=== PATIENT | female | born 1990 | race Caucasian/White ===

== ENCOUNTER 2016-06-12 09:10 | Inpatient (IN) | payer OTHER ==
[2016-06-12] VITALS (16 sets, daily range): BP systolic 92–142; BP diastolic 53–79
[~2016-06-12] VITALS: Ht 165.1 cm; Wt 56.0 kg
--- NOTE | ~2016-06-12 | CON ---
[place], [place] REPORT OF CONSULTATION NAME: MARY GRACE GRUBER UNIT #: [id number] ROOM: 401 DOCTOR: SUSIE CURRY MD BIRTHDATE: [birth year] DOS: 06/14/2016 REASON FOR CONSULTATION: Possible meningitis. CONSULTING PHYSICIAN: ____. HISTORY OF PRESENT ILLNESS: This is a 25-year-old woman who is a [id number] mom who had never had any similar illnesses, but does have anxiety and depression for which she does not take medicines, admitted with acute onset of left-sided neck pain and stiffness that started when she woke up from her sleep, the day before admission. It radiated to her lower back. Also, she does not recall any trauma, but she had been playing outside with her son. She recently had an outbreak of genital herpes 2 days ago. Does not have any fever or frontal headache or seizures. She has a history of hyperthyroidism, does not admit to any new medication changes recently. PAST MEDICAL HISTORY: Positive for history of anxiety, depression with nonadherence with treatment, bipolar 1 disorder, HSV infection of the genitalia, hyperthyroidism, and tobacco abuse. PAST SURGICAL HISTORY: Tonsillectomy, adenoidectomy. SOCIAL HISTORY: She smokes about a pack per day, does not drink alcohol, [id number] mom. No illicit drugs. Has 2 kids, 7 and 5 years old. FAMILY HISTORY: Father had diabetes and coronary artery disease. Mother with no health issues. ALLERGIES: SHE IS ALLERGIC TO PENICILLIN, ERYTHROMYCIN, MORPHINE. HOME MEDICATIONS: She does not take any medicines at home currently. REVIEW OF SYSTEMS: Fourteen review of systems otherwise negative unless otherwise specified in the HPI. PHYSICAL EXAMINATION: VITAL SIGNS: Showed temperature of 98.2, heart rate of 92, blood pressure 119/77, respiratory rate of 16, pulse ox of 100 on room air. GENERAL APPEARANCE: Awake, alert, oriented to time, place and person. No acute distress. HEENT: Oral cavity moist. NECK: Supple, no JVD, no lymphadenopathy, some neck stiffness with musculoskeletal pain on palpation. HEART: Regular rate and rhythm. S1, S2 normal. No murmurs, gallops or rubs. LUNGS: Clear to auscultation. Equal air entry bilaterally. ABDOMEN: Soft, nontender, nondistended. Bowel sounds heard. EXTREMITIES: Warm to touch. Pulses palpated bilaterally equal. LABORATORY DATA: Reviewed. WBC of 7.9, hemoglobin 11.2, platelets 171. BUN 4, creatinine 0.41. AST/ALT 02/23. C-reactive protein less than 0.29. CSF [place], [place] REPORT OF CONSULTATION NAME: MARY GRACE GRUBER UNIT #: [id number] ROOM: 401 DOCTOR: SUSIE CURRY MD BIRTHDATE: [birth year] analysis: WBC 2, glucose 60, protein 42.7. Blood cultures negative. CT of the head, no parenchymal abnormalities. Chest x-ray, no infiltrates. ASSESSMENT AND PLAN: Acute musculoskeletal neck pain without evidence of meningitis with normal CSF studies. I did not recommend any antibiotics or antivirals. She did have an outbreak of genital herpes, which is resolved at the moment, do not recommend any acyclovir either. We will leave management of the musculoskeletal neck pain and further workup for the same up to the primary team. Do not recommend any antibiotics. Recommendations conveyed to resident doctor, Dr. Roland Leon. I will follow as stated. Thank you for this consult. SUSIE CURRY MD CM:CONSTR:REPORT OF CONSULTATION 11 06/15/16 0425 interface
[2016-06-12 10:45] LABS: BASO % 0.4 % (0.0-1.0); EOS # 0.1 10*3/uL (0.0-0.4); EOS % 0.9 % (1.0-4.0); HEMATOCRIT 43.1 % (37.0-47.0); HEMOGLOBIN 14.7 g/dl (12.0-16.0); LYMPH # 2.1 10*3/uL (1.3-4.4); LYMPH % 21.7 % (27.0-41.0); MEAN CELL VOLUME 91.5 fl (81.0-99.0); MEAN CORPUSCULAR HGB 31.2 pg (27.0-31.0); MEAN CORPUSCULAR HGB CONC 34.1 g/dl (33.0-37.0); MEAN PLATELET VOLUME 9.9 fl (9.6-12.3); MONO # 0.4 10*3/uL (0.1-1.0); MONO % 3.7 % (3.0-9.0); NEUT % 72.9 % (47.0-73.0); PLATELET COUNT AUTOMATED 198 10*3/uL (130-400); RED BLOOD COUNT 4.71 10*6/uL (4.10-5.10); RED CELL DISTRI WIDTH 13.1 % (0-14.5); WHITE BLOOD COUNT 9.6 10*3/uL (4.8-10.8)
[2016-06-12 10:51] LABS: BILIRUBIN NEGATIVE (NEGATIVE); BLOOD TRACE-INTACT (NEGATIVE); CLARITY SL CLOUDY (CLEAR); COLOR YELLOW (YELLOW); GLUCOSE NEGATIVE (NEGATIVE); KETONE 2+ (NEGATIVE); LEUKO ESTERASE TRACE (NEGATIVE); NITRITE NEGATIVE (NEGATIVE); PROTEIN NEGATIVE (NEGATIVE); SPECIFIC GRAVITY <= 1.005 (1.005-1.030); UROBILINOGEN 0.2 E.U./dl (0.2-1.0)
[2016-06-12 10:56] LABS: PROTHROMBIN TIME 10.3 SECONDS (9.0-12.4)
[2016-06-12 11:00] LABS: URINE REFLEX COMMENT YES (NO)
[2016-06-12 11:04] LABS: ALBUMIN 4.2 gm/dl (3.1-4.5); BILIRUBIN, TOTAL 0.4 mg/dl (0.2-1.0); BUN 8 mg/dl (7-24); CARBON DIOXIDE 26 mmol/L (21-32); CHLORIDE 106 mmol/L (98-107); EST GLOM FILT AFRICAN AMERICAN > 60 ml/min; GLUCOSE 96 mg/dL (65-99); POTASSIUM 3.7 mmol/L (3.5-5.1); SGOT/AST 12 IU/L (3-35); SGPT/ALT 22 U/L (12-78); SODIUM 140 mmol/L (136-145); TOTAL PROTEIN 8.2 gm/dL (6.4-8.2)
[2016-06-12 11:07] LABS: ALKALINE PHOSPHATASE 58 U/L (45-117); C-REACTIVE PROTEIN < 0.29 MG/DL (0-0.3); TROPONIN I < 0.015 ng/ml (<0.045)
[2016-06-12 13:46] LABS: CSF RBC < 1000 /uL
[2016-06-12 13:50] LABS: CSF GLUCOSE 60 mg/dL (40-70); CSF TOTAL PROTEIN 42.7 mg/dL (15-45)
[2016-06-12 14:32] LABS: CSF LYMPHOCYTES 68 % (40-80); CSF MONOCYTES 12 % (15-45); CSF NEUTROPHILS 20 % (0-6)
[2016-06-12 14:37] LABS: CLARITY CLEAR; COLOR COLORLESS; TUBE# 2; VOLUME 3.5 mL
[2016-06-13] VITALS: BP 112/84
[2016-06-13 07:18] LABS: BASO % 0.2 % (0.0-1.0); EOS # 0.2 10*3/uL (0.0-0.4); EOS % 3.9 % (1.0-4.0); LYMPH # 2.4 10*3/uL (1.3-4.4); LYMPH % 42.2 % (27.0-41.0); MEAN CELL VOLUME 93.4 fl (81.0-99.0); MEAN CORPUSCULAR HGB CONC 33.1 g/dl (33.0-37.0); MONO # 0.3 10*3/uL (0.1-1.0); MONO % 5.5 % (3.0-9.0); NEUT # 2.7 10*3/uL (2.3-7.9); NEUT % 47.8 % (47.0-73.0); PLATELET COUNT AUTOMATED 163 10*3/uL (130-400); RED BLOOD COUNT 3.81 10*6/uL (4.10-5.10); WHITE BLOOD COUNT 5.6 10*3/uL (4.8-10.8)
[2016-06-13 07:21] LABS: HEMATOCRIT 35.6 % (37.0-47.0); HEMOGLOBIN 11.8 g/dl (12.0-16.0)
[2016-06-13 07:29] LABS: PROTHROMBIN TIME 10.4 SECONDS (9.0-12.4)
[2016-06-13 07:47] LABS: BUN 4 mg/dl (7-24); CARBON DIOXIDE 26 mmol/L (21-32); CHLORIDE 112 mmol/L (98-107); EST GLOM FILT AFRICAN AMERICAN > 60 ml/min; FREE T4 1.04 ng/dl (0.76-1.46); GLUCOSE 84 mg/dL (65-99); SODIUM 142 mmol/L (136-145)
[2016-06-13 07:55] VITALS: BP 112/61
[2016-06-13 12:00] VITALS: BP 120/80
[2016-06-13 16:00] VITALS: BP 116/73
[2016-06-13 20:00] VITALS: BP 120/80
[2016-06-14] VITALS: BP 102/56
[2016-06-14 03:35] LABS: BASO % 0.3 % (0.0-1.0); EOS # 0.3 10*3/uL (0.0-0.4); EOS % 3.5 % (1.0-4.0); HEMATOCRIT 33.5 % (37.0-47.0); HEMOGLOBIN 11.2 g/dl (12.0-16.0); LYMPH # 2.9 10*3/uL (1.3-4.4); LYMPH % 36.6 % (27.0-41.0); MEAN CELL VOLUME 91.8 fl (81.0-99.0); MEAN CORPUSCULAR HGB 30.7 pg (27.0-31.0); MEAN CORPUSCULAR HGB CONC 33.4 g/dl (33.0-37.0); MEAN PLATELET VOLUME 9.9 fl (9.6-12.3); MONO # 0.4 10*3/uL (0.1-1.0); MONO % 5.3 % (3.0-9.0); NEUT # 4.3 10*3/uL (2.3-7.9); PLATELET COUNT AUTOMATED 171 10*3/uL (130-400); RED BLOOD COUNT 3.65 10*6/uL (4.10-5.10); RED CELL DISTRI WIDTH 13.2 % (0-14.5); WHITE BLOOD COUNT 7.9 10*3/uL (4.8-10.8)
[2016-06-14 08:00] VITALS: BP 119/76
[2016-06-14 12:00] VITALS: BP 116/75
[2016-06-14 13:05] LABS: CSF VDRL 006445 Non Reactive (Non Rea:<1:1)
[2016-06-14 16:00] VITALS: BP 119/77
[2016-06-14] MEDS ORDERED: CYCLOBENZAPRINE10 MG PO (17:07)
== END 2016-06-14 18:28 | disposition home or self-care (01) | DRG 872 ==
LOC: ED 09:10 → EDHOLD 15:31 → 4E 15:31
PROVIDERS: Emergency Medicine; Internal Medicine; Internal Medicine Hospice and Palliative Medicine
PROC: 009U3ZX Drainage of Spinal Canal, Percutaneous Approach, Diagnostic (ICD-10-PCS; principal; 2016-06-12)
DX: A41.9 Sepsis, unspecified organism (principal); E83.51 Hypocalcemia; R65.20 Severe sepsis without septic shock; A60.00 Herpesviral infection of urogenital system, unspecified; F31.9 Bipolar disorder, unspecified; E05.90 Thyrotoxicosis, unspecified without thyrotoxic crisis or storm; D64.9 Anemia, unspecified; F41.9 Anxiety disorder, unspecified; F17.210 Nicotine dependence, cigarettes, uncomplicated; Z83.3 Family history of diabetes mellitus; Z82.49 Family history of ischemic heart disease and other diseases of the circulatory system; Z71.6 Tobacco abuse counseling; Z88.0 Allergy status to penicillin; Z88.1 Allergy status to other antibiotic agents; Z88.6 Allergy status to analgesic agent